=== PATIENT | female | born 1945 | race Caucasian/White ===

== ENCOUNTER 2017-01-17 07:48 | Day surgery (SDC) | payer MEDICARE ==
[2017-01-16 13:03] LABS: HEMATOCRIT 43.6 % (36.0-48.0); HEMOGLOBIN 14.8 g/dL (12.0-16.0)
[2017-01-16 13:16] LABS: A/G RATIO 1.2 (0.7-1.9); ALKALINE PHOSPHATASE 82 U/L (45-117); CALCIUM, SERUM 10.5 MG/DL (8.5-10.4); CHLORIDE, SERUM 107 MMOL/L (96-112); CO2 (CARBON DIOXIDE) 29 MMOL/L (24-34); CREATININE 0.57 MG/DL (0.55-1.02); GFR AFRICAN AMERICAN 107 ML/MIN (>=60); GFR NON AFRICAN AMERICAN 93 ML/MIN (>=60); GLOBULIN 3.3 G/DL (2.5-4.1); GLUCOSE, SERUM 91 MG/DL (60-99); POTASSIUM, SERUM 3.9 MMOL/L (3.5-5.3); SGOT(AST) 15 U/L (5-40); SGPT(ALT) 19 U/L (5-65); SODIUM, SERUM 143 MMOL/L (135-148); TOTAL BILIRUBIN 0.3 MG/DL (0-1.2); TOTAL PROTEIN 7.3 G/DL (6.0-8.5)
[2017-01-16 13:17] LABS: BUN (BLOOD UREA NITROGEN) 16 MG/DL (6-23)
--- NOTE | ~2017-01-17 | OP ---
Record Of Operation [facility] [address] [place]. [address] NAME: HERMINIA VERAS : 43 STATUS : REG [facility] [place] PAT#: [id number] AGE: 71 ADM/REG DATE : 01/17/17 MR#: [id number] REPORT SERV DATE: 01/17/17 DICTATED BY: ENIO CADET DATE: 01/17/17 REPORT STATUS : Draft TRANSCRIBED BY: MODGraeme DATE: 01/17/17 DATE OF PROCEDURE: 01/17/2017 PREOPERATIVE DIAGNOSIS: Primary hyperparathyroidism. POSTOPERATIVE DIAGNOSIS: Primary hyperparathyroidism. PROCEDURE: Parathyroidectomy. ANESTHESIA: General. IV FLUIDS: Approximately 1 L. ESTIMATED BLOOD LOSS: 5 mL. COMPLICATIONS: None. COUNTS: Correct. SPECIMEN: Right inferior parathyroid. DESCRIPTION OF PROCEDURE: The patient was brought to the operating room and placed supine on the operating table. Anesthetic was administered via endotracheal intubation tube. The patient was placed with maximal neck extension including shoulder roll in the semi-Landaverde's position. The neck was prepped and draped in a standard sterile fashion. A time-out was held. An incision was made approximately 4 cm in length in the natural skin crease. This was carried down to the level of the platysma, which was divided with electrocautery. Subplatysmal flaps were created. Next, we opened the median raphe down to the level of the thyroid. The thyroid was dissected off the posterior aspect of the right strap muscles. The thyroid was retracted medially. We began to try to identify the right superior parathyroid. The inferior thyroid vein was identified and was ligated and divided. We identified the inferior thyroid artery and likely recurrent laryngeal nerve crossing posterior to it. No right superior parathyroid was identified. We turned our attention to the inferior portion of the gland where we identified an abnormal-looking parathyroid gland. This was dissected free from the surrounding tissue and its blood supply isolated and clipped and divided. It was passed off the specimen. Adequate hemostasis was ensured. The running 3-0 Vicryl was used to reapproximate the median raphe. The platysma was reapproximated with 4-0 Vicryl and skin approximated with 4-0 Monocryl in a subcuticular fashion. Sterile bandages were applied. Preoperative PTH was 75 and the PTH at 10 minutes was 25. The patient will be extubated and transferred to the recovery room in stable condition. SR/MODL Record Of [place] [id number] [place] [id number] NAME: HERMINIA VERAS : 43 STATUS : REG [facility] PAT#: [id number] AGE: 71 ADM/REG DATE : 01/17/17 MR#: [id number] REPORT SERV DATE: 01/17/17 DICTATED BY: ENIO CADET DATE: 01/17/17 REPORT STATUS : Draft TRANSCRIBED BY: MODL DATE: 01/17/17 Enio Cadet M.D. / [id number] CC: Martin Brito M.D.
[~2017-01-17 07:48] MED LIST: ACET500CAP PO; CELEBREX1 PO; GLUCPH PO; IBU-200200 MG PO; P20 PO; PREDNISONE2.5 MG PO; PRIN10 PO; PRIN20 PO; RESTASIS OPH; TYLENOL PM PO; ULTRAM50 PO; VICODINTAB PO; ZOCOR20 PO; ZYRTEC ALLGY10 MG PO
[2017-01-17 10:56] LABS: PTH (INTRAOPERATIVE) 75.4 PG/ML (10.0-65.0); PTH TAT 0 Hrs 21 Mins
[2017-01-17 11:32] LABS: PTH (INTRAOPERATIVE) 25.5 PG/ML (10.0-65.0); PTH TAT 0 Hrs 00 Mins
[2017-01-17 11:37] LABS: PTH (INTRAOPERATIVE) 21.6 PG/ML (10.0-65.0); PTH TAT 0 Hrs 00 Mins
== END 2017-01-17 16:18 | disposition home or self-care (01) ==
LOC: SDC 07:48
PROVIDERS: Specialist
PROC: 0GBN0ZZ Excision of Right Inferior Parathyroid Gland, Open Approach (ICD-10-PCS; principal; 2017-01-17 09:45)
DX: D35.1 Benign neoplasm of parathyroid gland (principal); I10 Essential (primary) hypertension; E78.5 Hyperlipidemia, unspecified; R31.9 Hematuria, unspecified; Z90.710 Acquired absence of both cervix and uterus; Z90.49 Acquired absence of other specified parts of digestive tract; Z98.890 Other specified postprocedural states; Z83.3 Family history of diabetes mellitus; Z79.52 Long term (current) use of systemic steroids; Z79.899 Other long term (current) drug therapy; Z98.41 Cataract extraction status, right eye; Z98.42 Cataract extraction status, left eye; Z98.51 Tubal ligation status
CPT/HCPCS: 80053; 83970; 85014; 85018; 88305; 88313; 93005; A9270-GY; C1781; J2405; J2710; J3010